=== PATIENT | female | born 1955 | race Caucasian/White ===

== ENCOUNTER 2024-12-20 05:39 | Inpatient (IN) ==
--- NOTE | 2024-12-05 12:00 | PAT Medication Instructions ---
Medication Instructions Date of Service December 05, 2024 Home Medications cholecalciferol (vitamin D3) 125 mcg (5,000 unit) tablet (Vitamin D3) 125 mcg PO QAM esomeprazole magnesium 40 mg capsule,delayed release (Nexium) 40 mg PO BID DO NOT take the morning of surgery cholecalciferol (vitamin D3) 125 mcg (5,000 unit) tablet (Vitamin D3) 125 mcg PO QAM Take morning of surgery With a small sip of water, OTHERWISE NOTHING TO EAT OR DRINK AFTER MIDNIGHT: esomeprazole magnesium 40 mg capsule,delayed release (Nexium) 40 mg PO BID Other Notes If you have any questions please call us at [phone] or [phone] or [phone] or [phone]
--- NOTE | 2024-12-11 09:55 | Anesthesiology Consultation ---
Date of Service December 11, 2024 Assessment & Plan (1) Encounter for pre-operative examination: - Infectious disease screening: Per assessment on 12/11/24- No known recent infectious disease contacts or current infectious disease symptoms. - Cardiology visit 12/07/24: "12 Lead EKG performed today was independently reviewed by me and reveals NSR with nonspecific T wave changes.. Patient is low cardiac risk. Patient is able to complete 4.0 METS without anginal symptoms. Low risk per Brent Criteria. Given nonspecific EKG changes, will get 2D echo > 2D echo today preliminary reveals normal LV size and function and is benign. Will send clearance.. Elevated BP without dx HTN- monitor BP at home.. Repeat BP well controlled.." Final Echo report completed/reviewed by cardio and forwarded to us (of note atrial septal aneurysm noted; no additional cardiac preop recommendations- patient states cardio advised her nothing further needed in regards to this findings). - PCP visit 12/13/24: Hx Right ICA aneurysm noted (2021 carotid imaging received). "Cardiac clearance reviewed. Medical clearance granted." Chart Review Chart Review: Acceptable Risk for Surgery and Patient seen in Pre Admission Testing Teaching & Discussion Pre-Anesthesia Teaching/Discussion Notes: Instructed NPO after midnight before surgery,except medications with 15 cc of water. Medication instructions provided according to the PAT guidelines. History Surgery Operation Date: 12/20/24 07:45 Proposed Procedures p L3-L5 Removal Hardware, L5-S1 Decompression, L3-S1 Fusion - Murali Vaughn, Height/Weight Height: 5 ft 1 in Weight: 64.5 kg Allergies Allergy/AdvReac Type Severity Reaction Status Date / Time egg Allergy Unknown Swelling Verified 12/11/24 10:42 azithromycin Allergy Itchy Verified 12/11/24 10:42 ciprofloxacin [From Cipro] Allergy Hives Verified 12/11/24 10:42 levofloxacin [From Levaquin] Allergy Itchy Verified 12/11/24 10:42 nitrofurantoin Allergy Difficulty Verified 12/11/24 10:42 [From Macrobid] Breathing clarithromycin [From Biaxin] AdvReac Nausea Verified 12/11/24 10:42 esomeprazole [From Nexium] AdvReac Headaches, Verified 12/11/24 10:42 joint pain methotrexate AdvReac Headaches, Verified 12/11/24 10:42 cough metronidazole [From Flagyl] AdvReac Nausea Verified 12/11/24 10:42 sulfamethoxazole AdvReac Nausea Verified 12/11/24 10:42 [From Bactrim] trimethoprim [From Bactrim] AdvReac Nausea Verified 12/11/24 10:42 tree nuts Allergy Swelling Uncoded 12/11/24 10:42 Medications Home Medications Medication Instructions Recorded Confirmed Last Taken cholecalciferol (vitamin D3) 125 125 mcg PO QAM 12/05/24 12/05/24 Unknown mcg (5,000 unit) tablet (Vitamin D3) Tylenol 1 tab PO DIRECTED PRN Pain 12/11/24 12/11/24 Unknown pantoprazole 40 mg tablet,delayed 40 mg PO DAILY 12/11/24 12/11/24 Unknown release (Protonix) Past Medical History Medical History Atrial septal aneurysm Noted on 12/07/24 Echo Cerebral aneurysm Received PCP records that note hx of YONI aneursym. Patient states incidental "small" finding that remained stable x years and no surgical intervention recommended. Received 2021 CTA brain/neck that indicates patient with hx of "known aneurysm posterior skull" but there was no evidence of aneurysm on both brain or neck CTA at that time/most recent imaging 2021. GERD (gastroesophageal reflux disease) Hard of hearing History of [place] (myocardial infarction) 1995; after a trauma (fell and hit chest) Medically managed Follows with [facility] [place] Low back pain Exercise / Class Metabolic Activity II 4-5 Yardwork/Stairs/Walk up hill (one FS: No CP, no SOB) Past Family History Family History Other No family history of adverse response to anesthesia Past Surgical History Surgical History History of cholecystectomy History of colonoscopy History of esophagogastroduodenoscopy (EGD) History of foot surgery Left foot big toe; R foot plantar fascitis procedure History of hysterectomy History of intestinal surgery for obstruction; had ostomy and then subsequent reversal History of lumbar fusion History of postoperative nausea and vomiting History of tubal ligation Past Anesthesia History No Hx of Anesthesia Complications and No Family Hx of Anesthesia Complications (except father with PONV) History of PONV No Hx of Motion Sickness and History of PONV Social History Smoking Status: Never smoker Do You Dip or Chew Tobacco: No Hx Alcohol Use: No Hx Substance Use: No Review of Systems Patient denies chest pain, shortness of breath, dyspnea on exertion, fever, chills, cough, wheezing, palpitations. Physical Exam Vital Signs BP 117/78 P 67 TEMP 97.9 SP02 97%RA RESP 16 Physical Full cervical extension range of motion. Full TMJ range of motion. TMD 3 finger breaths Mallampati Score I Dentition: missing sides/molars, upper front permanent metal "tooth rebuilt" Lungs: clear throughout to auscultation Cardiac: regular rate and rhythm, no murmurs noted Spine: normal Carotid arteries: negative bruit Extremities: no LE edema Lab Results Anesthesia Preop Results Results Anesthesia Widget: WBC 3.76 K/ul (4.8-10.8) L 12/11/24 Hgb 13.5 g/dl (12.0-16.0) 12/11/24 Hct 38.4 % (37.0-47.0) 12/11/24 Plt 234 K/uL (130-400) 12/11/24 Na 140 mmol/L (136-145) 12/11/24 K 4.1 mmol/L (3.5-5.1) 12/11/24 Cl 106 mmol/L (98-107) 12/11/24 CO2 29 mmol/L (21-32) 12/11/24 BUN 16 mg/dl (6-23) 12/11/24 Creat 0.69 mg/dl (0.6-1.2) 12/11/24 Glucose Level 60 mg/dl (70-99(Fasting)) L 12/11/24 PT 10.4 Seconds (9.0-12.0) 12/11/24 PTT 27 Seconds (21-31) 12/11/24 INR 1.0 (0.9-1.1) 12/11/24 Urine Color Yellow 12/11/24 Urine Appearance Clear (Clear) 12/11/24 Urine pH 5.0 (4.5-7.5) 12/11/24 Urine Specific [place] 1.018 (1.000-1.030) 12/11/24 Urine Protein Negative (Negative) 12/11/24 Urine Glucose (UA) Negative (Negative) 12/11/24 Urine Ketones Negative (Negative) 12/11/24 Urine Blood Negative (Negative) 12/11/24 Urine Nitrite Negative (Negative) 12/11/24 Urine Bilirubin Negative (Negative) 12/11/24 Urine Urobilinogen Negative (Negative) 12/11/24 Urine Leukocyte Esterase Negative (Negative) 12/11/24 Blood Type A Positive 12/11/24 Antibody Screen NEGATIVE 12/11/24 Testing Electrocardiogram Date: 12/07/24 SR. 61bpm. NS TW changes. Chest X-Ray Date: 12/11/24 FINDINGS: Heart size and pulmonary vasculature are normal. Lungs are hyperexpanded. No consolidation or pleural effusion. Lumbar metallic fusion is partially visualized. There is minimal scoliosis. IMPRESSION: No acute findings. Echocardiogram Date: 12/07/24 EF 55-60%. Mild AR. Mild to moderate MR. Mild TR/NC. Eustachian valve seen in the right atrium. Grade I DD. Atrial septal aneurysm. Other Testing CTA Brain Date: 06/03/21 Unremarkable CTA of the brain. CTA neck Date: 06/03/21 Essentially normal CTA of the aortic arch and carotid arteries. Per report, hx "known aneurysm posterior skull"
[2024-12-20] MEDS: LR 15ML/HR IV SCH (06:00)
[2024-12-20] MEDS: VANCOMYCIN HCL / NSS 1,000 MG/270 ML BAG IV SCH (06:00)
[2024-12-20] MEDS: CeleBREX 200 MG CAP PO SCH (06:17)
[2024-12-20] MEDS: LR 60ML/HR IV SCH (06:17)
[2024-12-20] MEDS: GABAPENTIN 300 MG CAP PO SCH (06:17)
[2024-12-20] MEDS: ACETAMINOPHEN 500 MG TAB PO SCH (06:17)
[2024-12-20] MEDS ORDERED: DEXAMETHASONE SOD INJ 4 MG/ML VIAL ONE (07:12)
[2024-12-20] MEDS ORDERED: LARYING-O-JET KIT (LTA) ONE (07:12)
[2024-12-20] MEDS ORDERED: PROPOFOL IV EMULSION 10 MG/ML 20 ML VIAL IV ONE (07:12)
[2024-12-20] MEDS ORDERED: ONDANSETRON INJ 2 MG/ML 2 ML VIAL ONE (07:12)
[2024-12-20] MEDS ORDERED: LIDOCAINE 2% 2 ML VIAL/AMP(20MG/ML) INFIL ONE (07:12)
[2024-12-20] MEDS ORDERED: MIDAZOLAM HCL 1 MG/ML 2ML VIAL ONE (07:12)
[2024-12-20] MEDS ORDERED: ROCURONIUM BROMIDE 10 MG/ML 5 ML VIAL IV ONE ×2 (07:12→09:29)
[2024-12-20] MEDS ORDERED: ATROPINE SULFATE 0.1 MG/ML 10ML SYR IV PRN (07:29)
[2024-12-20] MEDS ORDERED: HYDROmorphone INJ 2 MG/ML SYR/VIAL IV PRN (07:29)
--- NOTE | 2024-12-20 07:42 | History & Physical Bridge Note ---
Date of Service December 20, 2024 History & Physical Bridge Note I have examined the patient, reviewed the History & Physical and in the interval since the performance of the History & Physical I have noted the following changes of clinical significance: no changes noted
--- NOTE | 2024-12-20 07:43 | History & Physical Report ---
Date of Service December 20, 2024 Assessment & Plan (1) Lumbosacral spondylosis with radiculopathy: Plan: Removal hardware L3-L5, decompression L5-S1 fusion L3-S1 History of Present Illness Chief Complaint: Back and bilateral leg pain Primary Care Provider: Jerzy Foote This is a 69-year-old female presents chronic persistent back and leg pain after an extensive course of nonoperative care is here for surgical intervention. Allergies Allergy/AdvReac Type Severity Reaction Status Date / Time egg Allergy Unknown Swelling Verified 12/20/24 05:47 azithromycin Allergy Itchy Verified 12/20/24 05:47 ciprofloxacin [From Cipro] Allergy Hives Verified 12/20/24 05:47 levofloxacin [From Levaquin] Allergy Itchy Verified 12/20/24 05:47 nitrofurantoin Allergy Difficulty Verified 12/20/24 05:47 [From Macrobid] Breathing clarithromycin [From Biaxin] AdvReac Nausea Verified 12/20/24 05:47 esomeprazole [From Nexium] AdvReac Headaches, Verified 12/20/24 05:47 joint pain methotrexate AdvReac Headaches, Verified 12/20/24 05:47 cough metronidazole [From Flagyl] AdvReac Nausea Verified 12/20/24 05:47 sulfamethoxazole AdvReac Nausea Verified 12/20/24 05:47 [From Bactrim] trimethoprim [From Bactrim] AdvReac Nausea Verified 12/20/24 05:47 tree nuts Allergy Swelling Uncoded 12/20/24 05:47 Home Medications Medication Instructions Recorded Confirmed Type cholecalciferol (vitamin D3) 125 125 mcg PO QAM 12/05/24 12/20/24 History mcg (5,000 unit) tablet (Vitamin D3) Tylenol 1 tab PO DIRECTED PRN Pain 12/11/24 12/20/24 History pantoprazole 40 mg tablet,delayed 40 mg PO DAILY 12/11/24 12/20/24 History release (Protonix) Past Med/Surg History Problem List (Updated 12/20/24 @ 07:43 by Murali Vaughn DO) Lumbosacral spondylosis with radiculopathy Encounter for pre-operative examination Medical History Atrial septal aneurysm Noted on 12/07/24 Echo Cerebral aneurysm Received PCP records that note hx of YONI aneursym. Patient states incidental "small" finding that remained stable x years and no surgical intervention recommended. Received 2021 CTA brain/neck that indicates patient with hx of "known aneurysm posterior skull" but there was no evidence of aneurysm on both brain or neck CTA at that time/most recent imaging 2021. GERD (gastroesophageal reflux disease) Hard of hearing History of [place] (myocardial infarction) 1995; after a trauma (fell and hit chest) Medically managed Follows with [facility] [place] Low back pain Surgical History History of cholecystectomy History of colonoscopy History of esophagogastroduodenoscopy (EGD) History of foot surgery Left foot big toe; R foot plantar fascitis procedure History of hysterectomy History of intestinal surgery for obstruction; had ostomy and then subsequent reversal History of lumbar fusion History of postoperative nausea and vomiting History of tubal ligation Family History Other No family history of adverse response to anesthesia Social History Smoking Status: Never smoker Second Hand Exposure: No; Do You Dip or Chew Tobacco: No; Tobacco Cessation Education Requested by Patient: No Hx Alcohol Use: No Hx Substance Use: No Preferred Language: Belarusian Communication Ability: Effective Supervisor Press Room Required: No Beliefs That Will Affect Care: None Current Living Situation: Spouse Other Information That Helps Us Care for You: No Feels Safe at Home: Yes Safety Concerns: Feels Safe At This Time Assistive Devices: Glasses and Hearing Aid - Bilateral Physical Exam Physical Exam: Patient alert and oriented heart regular rhythm Lungs clear Results & Data Results & Data Vital Signs (Past 12 Hours) Vital Signs Temp Pulse Resp BP Pulse Ox O2 Del Method 12/20/24 06:02 36.6 C 66 20 174/91 H 98 Room Air
[2024-12-20] MEDS ORDERED: ePHEDrine sulfate 50 MG/5 ML SYR ONE ×2 (08:05→09:29)
[2024-12-20] MEDS ORDERED: DROPERIDOL 5 MG/2 ML VIAL ONE (08:09)
[2024-12-20] MEDS ORDERED: SUGAMMADEX SODIUM 200 MG/2 ML VIAL IV ONE (08:18)
[2024-12-20] MEDS: BUPIVACAINE/EPINEPHRINE 0.25% 1:200,000 30 ML VIAL ONE (08:19)
[2024-12-20] MEDS: ceFAZolin 330 MG/ML 1 GM VIAL ONE (09:42)
[2024-12-20] MEDS: FLOSEAL HEMOSTATIC MATRIX 10ML TOP ONE (09:43)
--- NOTE | 2024-12-20 10:01 | Operative Report ---
Post Operative Report Pre & Post Diagnosis Operation Date: 12/20/24 07:45 Pre-Op Diagnosis: #1 lumbosacral Spondylosis with Radiculopathy #2 lumbar spondylolisthesis L5-S1 Post-Op Diagnosis: Same I identified the patient and participated in the time-out.: Yes Procedure Operation Date: 12/20/24 07:45 Actual Procedures #1 removal of posterior instrumentation L3-L5. #2 exploration of fusion L3-L5. #3 lumbar decompression with bilateral medial facetectomies and foraminotomies L5-S1. #4 posterior spinal fusion L5-S1. #5 placement posterior instrument ation L3-S1 using Aldrich. #6 interbody fusion L5-S1. #7 placement Spira 13 x 26 mm x 2 at L5-S1. #8 placement of Proteus, with Koros in the posterior lateral gutters and os design in the interbody space. #9 application of versa wrap of the exposed dura. Surgeon Murali Vaughn, DO Sustainability Project Manager Vilma Zhao Estimated Blood Loss 100 Findings See Below Significant technical difficulty was noted throughout the procedure involving instrumentation removal requiring helicopter and each screw for successful removal. Also noted excessive scarring throughout the surgical bed creating technical limitations and difficulties with the decompression and ultimate fusion of the L5-S1 level. These issues at at least 40% increased operative time. I am recommending a modifier 22. Specimens None Indications This is a 69-year-old female that presents manage diagnosis of failed course of nonoperative care she is here for surgical invention. Description of Procedure Patient was met with identified informed consent obtained. Patient was then taken to the operative suite underwent and patient placed in prone position on the Henry table atop the Mundo frame. All bony prominences well-padded eyes inspected to ensure no external pressure placed upon them. This point lumbar spine is prepped and draped sterile fashion. Sharp dissection with the assistance of Bovie cautery performed down to and exposing the instrumentation at L3-L4-L5 as well as the lamina of L5 and the sacral ala bilaterally. I then proceeded to remove the hardware bilaterally. This did create significant technical difficulty in light of the instrumentation required to remove each screw. I had to helicopter each screw was the only way to successfully remove the hardware. Then performed a complete laminectomy of L5 navigating previous scar. This included bilateral medial facetectomies and foraminotomies addressing all neural compression. Pedicle screws were then placed in L3-L5 and S1 levels bilaterally with assistance of fluoroscopy purposes baljeet contoured and placed. Bilateral transforaminal approach on the left discectomy of L5-S1 was performed endplates corrected to subcortical bleeding bone and a 13 x 26 mm Spira cage tapped in position. Then proceeded to the right transforaminal region L5-S1. Again discectomy performed. Endplates guided to subcortical bleeding bone and a second 13 x 26 mm Spira cage tapped into position. Please note all cages were packed with os design bone graft. Rods were then compressed locked into final position bilaterally. The transverse processes of L5 and sacral ala burred to subcortical bleeding bone. Proteus, with Koros placed in posterolateral gutters. Versa wrap placed of exposed dura. 15 round DIDI drain inserted. Incision was then closed with 1 Vicryl in the fascia 2-0 Vicryl subcutaneously and 4-0 Monocryl for final skin closure. Steri-Strips sterile dressing placed. Patient waken taken to PACU in stable condition. Please note Vilma Zhao was present at the entire procedure and on the patient positioning complex portion of the surgery and final skin closure. I attest to the content of the Intraoperative Record and any orders documented therein. Any exceptions are noted below.
[2024-12-20] MEDS: PROMETHAZINE HCL 6.25 MG in SODIUM CHLORIDE 0.9% 50 ML IV PRN (10:32)
--- NOTE | 2024-12-20 10:36 | Fluoroscopy Report ---
FL lumbar spine 2-3V CLINICAL HISTORY: L3-5 REMOVAL HARWARE L5-S1 DECOMP FUSION COMPARISON STUDY: None FLUOROSCOPY TIME: 11 seconds FLUOROSCOPY IMAGES: 2 EXPOSURE DOSE: 12 mGy FINDINGS: Fluoroscopy was provided for lumbar surgery. IMPRESSION: Intraoperative fluoroscopy. ACT 112: Negative or not required by law. Electronically signed by: Rick Hoyt M.D. 12/20/2024 10:35 AM
[2024-12-20] MEDS ORDERED: PROMETHAZINE 12.5 MG/50.5 ML BAG IV PRN (12:15)
[2024-12-20] MEDS ORDERED: LORazepam 0.5 MG TAB PO PRN (12:15)
[2024-12-20] MEDS ORDERED: HYDROmorphone INJ 0.5 MG/0.5 ML SYR IV PRN (12:15)
[2024-12-20] MEDS ORDERED: ONDANSETRON 4 MG OD TAB PO PRN (12:15)
[2024-12-20] MEDS ORDERED: NALOXONE HCL 0.4 MG/1 ML VIAL/CARP IV PRN (12:15)
[2024-12-20] MEDS ORDERED: HYDROmorphone INJ 1 MG/ML SYRINGE IV PRN (12:15)
[2024-12-20] MEDS ORDERED: DO NOT ADMINISTER PNEUMOCOCCAL VACCINE PRN (12:15)
[2024-12-20] MEDS ORDERED: FAMOTIDINE 20 MG TAB PO PRN (12:15)
[2024-12-20] MEDS ORDERED: ALUMINUM/MAGNESIUM SUSP 30 ML UDC PO PRN (12:15)
[2024-12-20] MEDS ORDERED: METOCLOPRAMIDE HCL INJ 5 MG/ML 2 ML VIAL IV PRN (12:15)
[2024-12-20] MEDS ORDERED: ONDANSETRON INJ 2 MG/ML 2 ML VIAL IV PRN (12:15)
[2024-12-20] MEDS ORDERED: DO NOT ADMINISTER FLU VACCINE PRN (12:15)
[2024-12-20] MEDS ORDERED: MAGNESIUM HYDROXIDE SUSP 30 ML UDC PO PRN (12:15)
[2024-12-20] MEDS ORDERED: ACETAMINOPHEN 1,000 MG/100 ML VIAL IV PRN (12:15)
[2024-12-20] MEDS ORDERED: SOD PHOSPHATE/SOD BIPHOSPHATE ENEMA 132 ML BTL PR PRN (12:15)
[2024-12-20] MEDS: SODIUM CHLORIDE 0.9% 50 ML BAG ONE (12:57)
[2024-12-20] MEDS: PROMETHAZINE HCL INJ 25 MG/ML 1 ML VIAL ONE (12:57)
[2024-12-20] MEDS: LACTATED RINGER'S 1,000 ML IV SCH (12:58)
--- NOTE | 2024-12-20 14:35 | Anesthesiology Progress Note ---
Date of Service December 20, 2024 Anesthesia Post Procedure Vital Signs Vital Signs: Temp Pulse Pulse Resp BP Pulse Ox O2 Del Method 12/20/24 13:57 36.5 C 78 16 102/66 99 Nasal Cannula 12/20/24 12:55 36.4 C L 77 18 110/72 99 Nasal Cannula 12/20/24 12:30 65 16 109/67 98 Nasal Cannula 12/20/24 12:00 36.3 C L 69 18 129/78 99 Nasal Cannula 12/20/24 11:35 69 13 140/79 99 Nasal Cannula 12/20/24 11:20 75 15 140/73 99 Nasal Cannula 12/20/24 11:05 61 14 125/66 100 Nasal Cannula 12/20/24 10:55 36.4 C L 62 14 131/70 99 Nasal Cannula 12/20/24 10:45 36.4 C L 68 15 127/71 99 Nasal Cannula 12/20/24 10:35 80 15 145/96 H 98 Oxymask 12/20/24 10:25 93 H 15 135/69 100 Oxymask 12/20/24 10:15 69 15 151/65 H 99 Oxymask 12/20/24 10:09 36.0 C L 71 15 159/84 H 100 Oxymask 12/20/24 06:02 36.6 C 66 20 174/91 H 98 Room Air O2 Flow Rate 12/20/24 13:57 2 12/20/24 12:55 2 12/20/24 12:30 2 12/20/24 12:00 2 12/20/24 11:35 2 12/20/24 11:20 2 12/20/24 11:05 2 12/20/24 10:55 4 12/20/24 10:45 4 12/20/24 10:35 5 12/20/24 10:25 5 12/20/24 10:15 5 12/20/24 10:09 5 12/20/24 06:02 Pain Intensity Back: Pain Intensity: 7 Transfer of Care Handoff Completed per policy Notes Mental Status: alert / awake / arousable and participated in evaluation Nausea / Vomiting: adequately controlled Pain: adequately controlled Airway Patency, RR, SpO2: stable & adequate BP & HR: stable & adequate Hydration State: stable & adequate Anesthetic Complications: no major complications apparent and Pt Satisfied with anesthetic care
--- NOTE | 2024-12-20 14:38 | Consultation ---
Date of Consultation December 20, 2024 Assessment & Plan (1) Cerebral aneurysm: (2) Atrial septal aneurysm: (3) History of [place] (myocardial infarction): (4) Lumbosacral spondylosis with radiculopathy: Plan The patient is a 69-year-old female who is s/p lumbar decompression and fusion Lumbar radiculopathy: S/p lumbar decompression/fusion 12/20: PT/OT/pain control/DVT prophylaxis per primary team Hx GERD: Continue pantoprazole Hx Vit D def: Continue vitamin D Some wheezing noted on exam, likely secondary to recent anesthesia, will order as needed albuterol, no hypoxia noted no shortness of breath We will follow along with you throughout the hospitalization A total of 45 mins was spent on chart review, reviewing diagnostic data, discus emma with consultants Full code DVT prophylaxis: Per primary team Supervising Physician Co-Signing Physician Notes Patient seen and examined Currently denies any pain in legs. Reports surgical site pain is well controlled Activity per Surgeon PT/OT Check CBC and BMP in AM Other plans as detailed by Romain PAEZ History of Present Illness Requesting Physician: Dr. Vaughn Reason for Consultation: S/p lumbar decompression & fusion Attending Physician: Murali Vaughn, DO History of Present Illness The patient is a 69-year-old female with a past medical history of GERD, vitamin D deficiency, right ICA aneurysm who presents to the hospital on 12/20/2024 s/p L5-S1 decompression, L3-S1 fusion We are asked to see the patient for postop medical management On exam, the patient is resting comfortably. She denies any complaints. Denies any chest pain or shortness of breath. Reports her pain is controlled. Allergies Allergy/AdvReac Type Severity Reaction Status Date / Time egg Allergy Unknown Swelling Verified 12/20/24 05:47 azithromycin Allergy Itchy Verified 12/20/24 05:47 ciprofloxacin [From Cipro] Allergy Hives Verified 12/20/24 05:47 levofloxacin [From Levaquin] Allergy Itchy Verified 12/20/24 05:47 nitrofurantoin Allergy Difficulty Verified 12/20/24 05:47 [From Macrobid] Breathing clarithromycin [From Biaxin] AdvReac Nausea Verified 12/20/24 05:47 esomeprazole [From Nexium] AdvReac Headaches, Verified 12/20/24 05:47 joint pain methotrexate AdvReac Headaches, Verified 12/20/24 05:47 cough metronidazole [From Flagyl] AdvReac Nausea Verified 12/20/24 05:47 sulfamethoxazole AdvReac Nausea Verified 12/20/24 05:47 [From Bactrim] trimethoprim [From Bactrim] AdvReac Nausea Verified 12/20/24 05:47 tree nuts Allergy Swelling Uncoded 12/20/24 05:47 Home Medications Medication Instructions Recorded Confirmed Type cholecalciferol (vitamin D3) 125 125 mcg PO QAM 12/05/24 12/20/24 History mcg (5,000 unit) tablet (Vitamin D3) Tylenol 1 tab PO DIRECTED PRN Pain 12/11/24 12/20/24 History pantoprazole 40 mg tablet,delayed 40 mg PO DAILY 12/11/24 12/20/24 History release (Protonix) Patient History Medical History Atrial septal aneurysm Noted on 12/07/24 Echo Cerebral aneurysm Received PCP records that note hx of YONI aneursym. Patient states incidental "small" finding that remained stable x years and no surgical intervention recommended. Received 2021 CTA brain/neck that indicates patient with hx of "known aneurysm posterior skull" but there was no evidence of aneurysm on both brain or neck CTA at that time/most recent imaging 2021. GERD (gastroesophageal reflux disease) Hard of hearing History of [place] (myocardial infarction) 1995; after a trauma (fell and hit chest) Medically managed Follows with [facility] [place] Low back pain Surgical History History of cholecystectomy History of colonoscopy History of esophagogastroduodenoscopy (EGD) History of foot surgery Left foot big toe; R foot plantar fascitis procedure History of hysterectomy History of intestinal surgery for obstruction; had ostomy and then subsequent reversal History of lumbar fusion History of postoperative nausea and vomiting History of tubal ligation Family History Other No family history of adverse response to anesthesia Social History Smoking Status: Never smoker Second Hand Exposure: No; Do You Dip or Chew Tobacco: No; Tobacco Cessation Education Requested by Patient: No Hx Alcohol Use: No Hx Substance Use: No Preferred Language: Yi Communication Ability: Effective 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 Beliefs That Will Affect Care: None Current Living Situation: Spouse Other Information That Helps Us Care for You: No Feels Safe at Home: Yes Safety Concerns: Feels Safe At This Time Assistive Devices: Cane and Walker Review of Systems Review of Systems: All systems reviewed & are unremarkable except as noted in HPI & below Physical Exam Constitutional: WD/WN, vitals as above Eyes: PERRL, conjunctivae normal, anicteric sclerae ENMT: external ear and nose normal, oropharynx normal Neck: trachea midline, no thyromegaly Respiratory: normal respiratory effort, lungs clear to auscultation Auscultation: + wheezes Cardiovascular: RRR, no murmur, no edema Gastrointestinal (Abdomen): normal bowel sounds, soft, nontender, no hepatosplenomegaly Musculoskeletal: no cyanosis or clubbing, extremities motor strength 5/5 (DIDI drain in place lumbar incision dressing CDI) Neurologic: PERRL, EOMI, accommodation nl, no face palsy, no dysarthria Psychiatric: A+Ox3, euthymic affect Lymphatic: no cervical or axillary lymphadenopathy Results & Data Vital Signs (Past 12 Hours) Vital Signs Temp Pulse Pulse Resp BP Pulse Ox O2 Del Method 12/20/24 13:57 36.5 C 78 16 102/66 99 Nasal Cannula 12/20/24 12:55 36.4 C L 77 18 110/72 99 Nasal Cannula 12/20/24 12:30 65 16 109/67 98 Nasal Cannula 12/20/24 12:00 36.3 C L 69 18 129/78 99 Nasal Cannula 12/20/24 11:35 69 13 140/79 99 Nasal Cannula 12/20/24 11:20 75 15 140/73 99 Nasal Cannula 12/20/24 11:05 61 14 125/66 100 Nasal Cannula 12/20/24 10:55 36.4 C L 62 14 131/70 99 Nasal Cannula 12/20/24 10:45 36.4 C L 68 15 127/71 99 Nasal Cannula 12/20/24 10:35 80 15 145/96 H 98 Oxymask 12/20/24 10:25 93 H 15 135/69 100 Oxymask 12/20/24 10:15 69 15 151/65 H 99 Oxymask 12/20/24 10:09 36.0 C L 71 15 159/84 H 100 Oxymask 12/20/24 06:02 36.6 C 66 20 174/91 H 98 Room Air O2 Flow Rate 12/20/24 13:57 2 12/20/24 12:55 2 12/20/24 12:30 2 12/20/24 12:00 2 12/20/24 11:35 2 12/20/24 11:20 2 12/20/24 11:05 2 12/20/24 10:55 4 12/20/24 10:45 4 12/20/24 10:35 5 12/20/24 10:25 5 12/20/24 10:15 5 12/20/24 10:09 5 12/20/24 06:02 Laboratory Results Laboratory Results Blood Type A Positive 12/20/24 05:38 Antibody Screen NEGATIVE 12/20/24 05:38 Crossmatch See Detail 12/20/24 05:38 Impressions Lumbar Spine X-Ray 12/20/24 07:45 FL lumbar spine 2-3V CLINICAL HISTORY: L3-5 REMOVAL HARWARE L5-S1 DECOMP FUSION COMPARISON STUDY: None FLUOROSCOPY TIME: 11 seconds FLUOROSCOPY IMAGES: 2 EXPOSURE DOSE: 12 mGy FINDINGS: Fluoroscopy was provided for lumbar surgery. IMPRESSION: Intraoperative fluoroscopy. ACT 112: Negative or not required by law. Electronically signed by: Rick Hoyt M.D. 12/20/2024 10:35 AM
[2024-12-20] MEDS: ACETAMINOPHEN 500 MG TAB PO PRN (18:09)
[2024-12-20] MEDS: DOCUSATE SODIUM/SENNA 50/8.6MG TAB PO SCH (20:18)
[2024-12-21] MEDS: POLYETHYLENE (MIRALAX) 17 GM PACK PO SCH (05:58)
[2024-12-21 06:51] LABS: Hematocrit (blood only) 27.5 % (37.0-47.0); Hemoglobin 9.5 g/dl (12.0-16.0); Immature Granulocytes # (auto) 0.03 K/uL (0.01-0.20); Immature Granulocytes % (auto) 0.4 %; Mean Corpuscular Hemoglobin 31.1 pg (25.0-34.0); Mean Corpuscular Volume 90.2 fL (80.0-100.0); Platelet Count 184 K/uL (130-400); RDW Standard Deviation 41.6 fL (36.4-46.3); Red Blood Count 3.05 M/uL (4.20-5.40); White Blood Count 6.87 K/ul (4.8-10.8)
[2024-12-21 07:15] LABS: Anion Gap 4.0 (3-11); Calcium 8.5 mg/dl (8.6-10.3); Carbon Dioxide 28.0 mmol/L (21-32); Chloride 107.0 mmol/L (98-107); Potassium 4.0 mmol/L (3.5-5.1); Sodium 139.0 mmol/L (136-145)
[2024-12-21 07:20] LABS: Blood Urea Nitrogen 13.0 mg/dl (6-23); Creatinine Clr Calc Pharmacy 63.7 ml/min; Glucose 131.0 mg/dl (70-99(Fasting))
[2024-12-21] MEDS: CHOLECALCIFEROL 125 MCG (5,000 UNITS) TAB PO SCH (09:07)
[2024-12-21] MEDS: dexAMETHasone 6 MG in SYRINGE 0 ML IV SCH (09:07)
--- NOTE | 2024-12-21 12:21 | Orthopedic Progress Note ---
Date of Service December 21, 2024 Assessment & Plan (1) Lumbosacral spondylosis with radiculopathy: Plan: At this time we will continue physical therapy monitor her DIDI output healthy discharge home next few days. Admission and Anticipated Discharge Date Admission Date: December 20, 2024 Subjective Back pain controlled leg pain markedly improved Physical Exam Physical Exam: Patient is in the chair at the bedside. Comfortable Strength testing. Results & Data Vital Signs (Past 12 Hours) Vital Signs Temp Pulse Resp BP Pulse Ox O2 Del Method 12/21/24 11:23 36.6 C 67 16 106/66 98 Room Air 12/21/24 07:10 36.6 C 74 16 109/64 97 Room Air 12/21/24 03:44 36.6 C 71 16 114/60 98 Room Air
--- NOTE | 2024-12-21 12:38 | Hospitalist Progress Note ---
Date of Service December 21, 2024 Assessment & Plan (1) Cerebral aneurysm: (2) Atrial septal aneurysm: (3) History of [place] (myocardial infarction): (4) Lumbosacral spondylosis with radiculopathy: Plan The patient is a 69-year-old female who is s/p lumbar decompression and fusion Lumbar radiculopathy: S/p lumbar decompression/fusion 12/20: PT/OT/pain control/DVT prophylaxis per primary team Denies any symptoms following the procedure except minimal pain at the lower back Her hemoglobin is 9.5 on 12/21/2024 which was 13.5 on 12/11/2024Will monitor Remains otherwise medically stable with normal renal function and electrolytes Acute blood loss anemia Complicated by fluid administration No obvious bleeding from GI tract Will monitor CBC Hx GERD: Continue pantoprazole Hx Vit D def: Continue vitamin D Full code DVT prophylaxis: Per primary team Admission and Anticipated Discharge Date Admission Date: December 20, 2024 Subjective 12/21/2024 The patient was seen and examined in medical floor She is a status post L5-S1 decompression, L3-S1 fusion and L3-L5 removal of hardware on 12/20/2024 She complains to a minimal pain at the lower back without any radiation Denies any other significant symptoms Review of Systems Review of Systems: All systems reviewed and are unremarkable except as noted below Physical Exam Physical Exam: Sitting on a chair without any acute distress Constitutional: well developed, well nourished, + ill appearing and average body habitus Eyes: PERRL, conjunctivae normal, anicteric sclerae ENMT: external ear and nose normal, oropharynx normal Neck: trachea midline, no thyromegaly Respiratory: no respiratory distress Auscultation: lungs clear to auscultation bilaterally Cardiovascular: Rate/Rhythm: regular rate and regular rhythm; not tachycardic Heart Sounds: normal S1 and normal S2; no murmur Extremities: no edema Gastrointestinal (Abdomen): Inspection/Auscultation: normal bowel sounds; abdomen not distended Percussion/Palpation: abdomen soft; abdomen nontender Musculoskeletal: No acute arthritis involving any of the joint Neurologic: normal touch/pain/proprioception and moves all extremities; no focal motor deficits Lymphatic: no cervical or axillary lymphadenopathy Results & Data Results & Data Vital Signs (Past 12 Hours) Vital Signs Temp Pulse Resp BP Pulse Ox O2 Del Method 12/21/24 11:23 36.6 C 67 16 106/66 98 Room Air 12/21/24 07:10 36.6 C 74 16 109/64 97 Room Air 12/21/24 03:44 36.6 C 71 16 114/60 98 Room Air Laboratory Results Short CBC 12/21/24 Range/Units 06:03 WBC 6.87 (4.8-10.8) K/ul Hgb 9.5 L (12.0-16.0) g/dl Hct 27.5 L (37.0-47.0) % Plt Count 184 (130-400) K/uL BMP 12/21/24 06:03 Sodium 139 Potassium 4.0 Chloride 107 Carbon Dioxide 28 BUN 13 Creatinine 0.72 Glucose 131 H Calcium 8.5 L Medications Administered Current Inpatient Medications Acetaminophen (Acetaminophen 500 Mg Tab) 1,000 mg PO Q8H PRN PRN Reason: MILD Pain (1,2,3) & Pre PT Stop: 01/19/25 12:14 Last Admin: 12/21/24 10:24 Dose: 1,000 mg Al Hydrox/Mg Hydrox/Simethicone (Aluminum/Magnesium Susp 30 Ml Udc) 30 ml PO Q6H PRN PRN Reason: Dyspepsia Stop: 01/19/25 12:14 Bisacodyl (Bisacodyl 10 Mg Supp) 10 mg [place] DAILY PRN PRN Reason: Constipation Stop: 01/19/25 12:14 Diphenhydramine HCl (Diphenhydramine Capsule 25 Mg Cap) 25 mg PO Q6H PRN PRN Reason: Allergic Rhinitis/Insomnia Stop: 01/19/25 12:14 Famotidine (Famotidine 20 Mg Tab) 20 mg PO Q12H PRN PRN Reason: Dyspepsia Stop: 01/19/25 12:14 Hydromorphone HCl (Hydromorphone Inj 0.5 Mg/0.5 Ml Syr) 0.5 mg IV Q3H PRN PRN Reason: MODERATE Pain(4,5,6)/Pre PT Stop: 01/03/25 12:14 Hydromorphone HCl (Hydromorphone Inj 1 Mg/Ml Syringe) 1 mg IV Q3H PRN PRN Reason: SEVERE Pain (7,8,9,10) Stop: 01/03/25 12:14 Hydroxyzine HCl (Hydroxyzine Hcl 25 Mg Tab) 25 mg PO Q8H PRN PRN Reason: Anxiety Stop: 01/19/25 12:14 Cefazolin Sodium (Ancef 2000mg) 2,000 mg in 15 mls @ 3.75 mls/min IV Q8H MOLLY; Protocol Stop: 12/23/24 08:18 Last Admin: 12/21/24 09:07 Dose: 3.75 mls/min Promethazine HCl (Phenergan) 12.5 mg in 50.5 mls @ 202 mls/hr IV Q6H PRN PRN Reason: Nausea And Vomiting Stop: 01/19/25 12:14 Dexamethasone 6 mg/ Syringe 1.5 mls @ 1 mls/min IV DAILY MOLLY Stop: 12/23/24 09:02 Last Admin: 12/21/24 09:07 Dose: 1 mls/min Influenza Virus Vaccine Quadrival (Do Not Administer Flu Vaccine) 1 each N/A PRN PRN PRN Reason: Notification Stop: 01/19/25 12:14 Lorazepam (Lorazepam 0.5 Mg Tab) 0.5 mg PO Q8H PRN PRN Reason: Sedation/Anxiety Stop: 01/19/25 12:14 Lorazepam (Lorazepam 2 Mg/1 Ml Vial) 0.5 mg IV Q8H PRN PRN Reason: Sedation/Anxiety Stop: 01/19/25 12:14 Magnesium Hydroxide (Magnesium Hydroxide Susp 30 Ml Udc) 30 ml PO Q24H PRN PRN Reason: Constipation Stop: 01/19/25 12:14 Metoclopramide HCl (Metoclopramide Hcl Inj 5 Mg/Ml 2 Ml Vial) 10 mg IV Q6H PRN PRN Reason: Nausea &/or Vomiting Stop: 01/19/25 12:14 Naloxone HCl (Naloxone Hcl 0.4 Mg/1 Ml Vial/Carp) 0.1 mg IV Q5M PRN PRN Reason: Oversedation/Resp depression Stop: 01/19/25 12:14 Ondansetron HCl (Ondansetron Inj 2 Mg/Ml 2 Ml Vial) 4 mg IV Q6H PRN PRN Reason: Nausea &/or Vomiting Stop: 01/19/25 12:14 Ondansetron HCl (Ondansetron 4 Mg Od Tab) 4 mg PO Q6H PRN PRN Reason: Nausea Stop: 01/19/25 12:14 Oxycodone HCl (Oxycodone Hcl Ir 5 Mg Tab (Immediate Release)) 5 - 10 mg PO Q4H PRN PRN Reason: MOD/SEV Pain & Pre PT Stop: 01/03/25 12:14 Pantoprazole Sodium (Pantoprazole 40 Mg Tab) 40 mg PO DAILY MOLLY Stop: 01/20/25 08:59 Last Admin: 12/21/24 09:07 Dose: 40 mg Pneumococcal Polyvalent Vaccine (Do Not Administer Pneumococcal Vaccine) 1 each N/A PRN PRN PRN Reason: Notification Stop: 01/19/25 12:14 Polyethylene Glycol (Polyethylene (Miralax) 17 Gm Pack) 17 gm PO Q6 MOLLY Stop: 01/20/25 05:59 Last Admin: 12/21/24 11:37 Dose: 17 gm Senna/Docusate Sodium (Docusate Sodium/Senna 50/8.6mg Tab) 2 tab PO HS MOLLY Stop: 01/19/25 20:59 Last Admin: 12/20/24 20:18 Dose: 2 tab Sodium Biphosphate/Sodium Phosphate (Sod Phosphate/Sod Biphosphate Enema 132 Ml Btl) 132 ml OH ONE PRN PRN Reason: Constipation Stop: 01/19/25 12:14 Tramadol HCl (Tramadol Hcl 50 Mg Tablet) 50 - 100 mg PO Q4H PRN PRN Reason: MOD/SEV Pain & Pre PT Stop: 01/19/25 12:14 Vitamin D (Cholecalciferol 125 Mcg (5,000 Units) Tab) 125 mcg PO QAM MOLLY Stop: 01/20/25 08:59 Last Admin: 12/21/24 09:07 Dose: 125 mcg
[2024-12-21] MEDS: CLINDAMYCIN/D5W 600 MG/50 ML BAG IV SCH (17:41)
[2024-12-22] MEDS: diphenhydrAMINE Capsule 25 MG CAP PO PRN (00:43)
--- NOTE | 2024-12-22 06:35 | Orthopedic Progress Note ---
Date of Service December 22, 2024 Assessment & Plan (1) Lumbosacral spondylosis with radiculopathy: Plan: At this time we will continue physical therapy monitor her DIDI output healthy discharge home Likely tomorrow. Admission and Anticipated Discharge Date Admission Date: December 20, 2024 Subjective The patient was seen and examined in medical floor She is a status post L5-S1 decompression, L3-S1 fusion and L3-L5 removal of hardware on 12/20/2024 She complains to a minimal pain at the lower back without any radiation Denies any other significant symptoms Review of Systems Review of Systems: All systems reviewed & are unremarkable except as noted in HPI & below Physical Exam Physical Exam: sensation intact light touch L2-S1 bilaterally. active EHL/GSC/TA bilaterally. Bilateral feet warm and well-perfused. Results & Data Vital Signs (Past 12 Hours) Vital Signs Temp Pulse Resp BP Pulse Ox O2 Del Method 12/21/24 22:32 36.6 C 67 18 116/65 96 Room Air
[2024-12-22 08:47] LABS: Hematocrit (blood only) 28.3 % (37.0-47.0); Hemoglobin 9.6 g/dl (12.0-16.0); Immature Granulocytes # (auto) 0.04 K/uL (0.01-0.20); Immature Granulocytes % (auto) 0.5 %; Mean Corpuscular Hemoglobin 31.4 pg (25.0-34.0); Mean Corpuscular Volume 92.5 fL (80.0-100.0); Platelet Count 197 K/uL (130-400); RDW Standard Deviation 44.2 fL (36.4-46.3); Red Blood Count 3.06 M/uL (4.20-5.40); White Blood Count 7.87 K/ul (4.8-10.8)
[2024-12-22 09:04] LABS: Anion Gap 3.0 (3-11); Blood Urea Nitrogen 15.0 mg/dl (6-23); Calcium 8.6 mg/dl (8.6-10.3); Carbon Dioxide 31.0 mmol/L (21-32); Chloride 108.0 mmol/L (98-107); Creatinine Clr Calc Pharmacy 70.6 ml/min; Glucose 105.0 mg/dl (70-99(Fasting)); Potassium 3.8 mmol/L (3.5-5.1); Sodium 142.0 mmol/L (136-145)
--- NOTE | 2024-12-22 14:20 | Hospitalist Progress Note ---
Date of Service December 22, 2024 Assessment & Plan (1) Cerebral aneurysm: (2) Atrial septal aneurysm: (3) History of [place] (myocardial infarction): (4) Lumbosacral spondylosis with radiculopathy: Plan The patient is a 69-year-old female who is s/p lumbar decompression and fusion Lumbar radiculopathy: S/p lumbar decompression/fusion 12/20: PT/OT/pain control/DVT prophylaxis per primary team Denies any symptoms following the procedure except minimal pain at the lower back Her hemoglobin is 9.5 on 12/21/2024 which was 13.5 on 12/11/2024Will monitor Remains otherwise medically stable with normal renal function and electrolytes Remains medically stable without much pain at the back Her electrolytes are normal Acute blood loss anemia Complicated by fluid administration No obvious bleeding from GI tract Will monitor CBC-hemoglobin remains stable at 9.6 Hx GERD: Continue pantoprazole Hx Vit D def: Continue vitamin D Full code DVT prophylaxis: Per primary team Admission and Anticipated Discharge Date Admission Date: December 20, 2024 Subjective 12/21/2024 The patient was seen and examined in medical floor She is a status post L5-S1 decompression, L3-S1 fusion and L3-L5 removal of hardware on 12/20/2024 She complains to a minimal pain at the lower back without any radiation Denies any other significant symptoms 12/22/2024 Patient was seen and examined in medical floor She has been much better denies any more symptoms of antibiotic Denies any significant symptoms Review of Systems Review of Systems: All systems reviewed and are unremarkable except as noted below Physical Exam Physical Exam: Sitting on a chair without any acute distress Constitutional: well developed, well nourished, + ill appearing and average body habitus Eyes: PERRL, conjunctivae normal, anicteric sclerae ENMT: external ear and nose normal, oropharynx normal Neck: trachea midline, no thyromegaly Respiratory: no respiratory distress Auscultation: lungs clear to auscultation bilaterally Cardiovascular: Rate/Rhythm: regular rate and regular rhythm; not tachycardic Heart Sounds: normal S1 and normal S2; no murmur Extremities: no edema Gastrointestinal (Abdomen): Inspection/Auscultation: normal bowel sounds; abdomen not distended Percussion/Palpation: abdomen soft; abdomen nontender Neurologic: normal touch/pain/proprioception and moves all extremities; no focal motor deficits Lymphatic: no cervical or axillary lymphadenopathy Results & Data Results & Data Vital Signs (Past 12 Hours) Vital Signs Temp Pulse Resp BP Pulse Ox O2 Del Method 12/22/24 07:12 36.8 C 70 16 105/58 L 99 Room Air 12/22/24 07:00 Room Air Laboratory Results Short CBC 12/22/24 Range/Units 08:05 WBC 7.87 (4.8-10.8) K/ul Hgb 9.6 L (12.0-16.0) g/dl Hct 28.3 L (37.0-47.0) % Plt Count 197 (130-400) K/uL BMP 12/22/24 08:05 Sodium 142 Potassium 3.8 Chloride 108 H Carbon Dioxide 31 BUN 15 Creatinine 0.65 Glucose 105 H Calcium 8.6 Medications Administered Current Inpatient Medications Acetaminophen (Acetaminophen 500 Mg Tab) 1,000 mg PO Q8H PRN PRN Reason: MILD Pain (1,2,3) & Pre PT Stop: 01/19/25 12:14 Last Admin: 12/22/24 08:45 Dose: 1,000 mg Al Hydrox/Mg Hydrox/Simethicone (Aluminum/Magnesium Susp 30 Ml Udc) 30 ml PO Q6H PRN PRN Reason: Dyspepsia Stop: 01/19/25 12:14 Bisacodyl (Bisacodyl 10 Mg Supp) 10 mg [place] DAILY PRN PRN Reason: Constipation Stop: 01/19/25 12:14 Diphenhydramine HCl (Diphenhydramine Capsule 25 Mg Cap) 25 mg PO Q6H PRN PRN Reason: Allergic Rhinitis/Insomnia Stop: 01/19/25 12:14 Last Admin: 12/22/24 08:48 Dose: 25 mg Famotidine (Famotidine 20 Mg Tab) 20 mg PO Q12H PRN PRN Reason: Dyspepsia Stop: 01/19/25 12:14 Hydromorphone HCl (Hydromorphone Inj 0.5 Mg/0.5 Ml Syr) 0.5 mg IV Q3H PRN PRN Reason: MODERATE Pain(4,5,6)/Pre PT Stop: 01/03/25 12:14 Hydromorphone HCl (Hydromorphone Inj 1 Mg/Ml Syringe) 1 mg IV Q3H PRN PRN Reason: SEVERE Pain (7,8,9,10) Stop: 01/03/25 12:14 Hydroxyzine HCl (Hydroxyzine Hcl 25 Mg Tab) 25 mg PO Q8H PRN PRN Reason: Anxiety Stop: 01/19/25 12:14 Promethazine HCl (Phenergan) 12.5 mg in 50.5 mls @ 202 mls/hr IV Q6H PRN PRN Reason: Nausea And Vomiting Stop: 01/19/25 12:14 Dexamethasone 6 mg/ Syringe 1.5 mls @ 1 mls/min IV DAILY MOLLY Stop: 12/23/24 09:02 Last Admin: 12/22/24 08:44 Dose: 1 mls/min Clindamycin Phosphate (Cleocin/D5w) 600 mg in 50 mls @ 100 mls/hr IV Q8H MOLLY Stop: 12/28/24 16:29 Last Infusion: 12/22/24 09:15 Dose: Infused Influenza Virus Vaccine Quadrival (Do Not Administer Flu Vaccine) 1 each N/A PRN PRN PRN Reason: Notification Stop: 01/19/25 12:14 Lorazepam (Lorazepam 0.5 Mg Tab) 0.5 mg PO Q8H PRN PRN Reason: Sedation/Anxiety Stop: 01/19/25 12:14 Lorazepam (Lorazepam 2 Mg/1 Ml Vial) 0.5 mg IV Q8H PRN PRN Reason: Sedation/Anxiety Stop: 01/19/25 12:14 Magnesium Hydroxide (Magnesium Hydroxide Susp 30 Ml Udc) 30 ml PO Q24H PRN PRN Reason: Constipation Stop: 01/19/25 12:14 Metoclopramide HCl (Metoclopramide Hcl Inj 5 Mg/Ml 2 Ml Vial) 10 mg IV Q6H PRN PRN Reason: Nausea &/or Vomiting Stop: 01/19/25 12:14 Naloxone HCl (Naloxone Hcl 0.4 Mg/1 Ml Vial/Carp) 0.1 mg IV Q5M PRN PRN Reason: Oversedation/Resp depression Stop: 01/19/25 12:14 Ondansetron HCl (Ondansetron Inj 2 Mg/Ml 2 Ml Vial) 4 mg IV Q6H PRN PRN Reason: Nausea &/or Vomiting Stop: 01/19/25 12:14 Ondansetron HCl (Ondansetron 4 Mg Od Tab) 4 mg PO Q6H PRN PRN Reason: Nausea Stop: 01/19/25 12:14 Oxycodone HCl (Oxycodone Hcl Ir 5 Mg Tab (Immediate Release)) 5 - 10 mg PO Q4H PRN PRN Reason: MOD/SEV Pain & Pre PT Stop: 01/03/25 12:14 Pantoprazole Sodium (Pantoprazole 40 Mg Tab) 40 mg PO DAILY MOLLY Stop: 01/20/25 08:59 Last Admin: 12/22/24 08:43 Dose: 40 mg Pneumococcal Polyvalent Vaccine (Do Not Administer Pneumococcal Vaccine) 1 each N/A PRN PRN PRN Reason: Notification Stop: 01/19/25 12:14 Polyethylene Glycol (Polyethylene (Miralax) 17 Gm Pack) 17 gm PO Q6 MOLLY Stop: 01/20/25 05:59 Last Admin: 12/22/24 12:06 Dose: 17 gm Senna/Docusate Sodium (Docusate Sodium/Senna 50/8.6mg Tab) 2 tab PO HS MOLLY Stop: 01/19/25 20:59 Last Admin: 12/21/24 21:27 Dose: 2 tab Sodium Biphosphate/Sodium Phosphate (Sod Phosphate/Sod Biphosphate Enema 132 Ml Btl) 132 ml GA ONE PRN PRN Reason: Constipation Stop: 01/19/25 12:14 Tramadol HCl (Tramadol Hcl 50 Mg Tablet) 50 - 100 mg PO Q4H PRN PRN Reason: MOD/SEV Pain & Pre PT Stop: 01/19/25 12:14 Vitamin D (Cholecalciferol 125 Mcg (5,000 Units) Tab) 125 mcg PO QAM MOLLY Stop: 01/20/25 08:59 Last Admin: 12/22/24 08:43 Dose: 125 mcg
[2024-12-23 07:59] VITALS: PULSE 66; RESP 16; TEMP 98.2; O2SAT 97
--- NOTE | 2024-12-23 13:20 | Hospitalist Progress Note ---
Date of Service December 23, 2024 Assessment & Plan (1) Cerebral aneurysm: (2) Atrial septal aneurysm: (3) History of MO (myocardial infarction): (4) Lumbosacral spondylosis with radiculopathy: Plan The patient is a 69-year-old female who is s/p lumbar decompression and fusion Lumbar radiculopathy: S/p lumbar decompression/fusion 12/20: PT/OT/pain control/DVT prophylaxis per primary team Denies any symptoms following the procedure except minimal pain at the lower back Her hemoglobin is 9.5 on 12/21/2024 which was 13.5 on 12/11/2024Will monitor Remains otherwise medically stable with normal renal function and electrolytes Remains medically stable without much pain at the back Her electrolytes are normal Pain is controlled and she has been ambulating well without difficulties Waiting to be discharged Acute blood loss anemia Complicated by fluid administration No obvious bleeding from GI tract Will monitor CBC-hemoglobin remains stable at 9.6 Remains asymptomatic Hx GERD: Continue pantoprazole Hx Vit D def: Continue vitamin D Full code DVT prophylaxis: Per primary team Admission and Anticipated Discharge Date Admission Date: December 20, 2024 Subjective 12/21/2024 The patient was seen and examined in medical floor She is a status post L5-S1 decompression, L3-S1 fusion and L3-L5 removal of hardware on 12/20/2024 She complains to a minimal pain at the lower back without any radiation Denies any other significant symptoms 12/22/2024 Patient was seen and examined in medical floor She has been much better denies any more symptoms of antibiotic Denies any significant symptoms 12/23/2024 Patient was seen and examined in medical floor She has been stable and almost ready to go Does not have any drainage from the back surgery and back pain is controlled Waiting to be discharged Review of Systems Review of Systems: All systems reviewed and are unremarkable except as noted below Physical Exam Physical Exam: Sitting on a chair without any acute distress Constitutional: well developed, well nourished, + ill appearing and average body habitus Eyes: PERRL, conjunctivae normal, anicteric sclerae ENMT: external ear and nose normal, oropharynx normal Neck: trachea midline, no thyromegaly Respiratory: no respiratory distress Auscultation: lungs clear to auscultation bilaterally Cardiovascular: Rate/Rhythm: regular rate and regular rhythm; not tachycardic Heart Sounds: normal S1 and normal S2; no murmur Extremities: no edema Gastrointestinal (Abdomen): Inspection/Auscultation: normal bowel sounds; abdomen not distended Percussion/Palpation: abdomen soft; abdomen nontender Neurologic: normal touch/pain/proprioception and moves all extremities; no focal motor deficits Lymphatic: no cervical or axillary lymphadenopathy Results & Data Results & Data Vital Signs (Past 12 Hours) Vital Signs Temp Pulse Resp BP Pulse Ox O2 Del Method 12/23/24 07:15 36.8 C 66 16 127/78 97 Room Air 12/23/24 07:00 Room Air Medications Administered Current Inpatient Medications Acetaminophen (Acetaminophen 500 Mg Tab) 1,000 mg PO Q8H PRN PRN Reason: MILD Pain (1,2,3) & Pre PT Stop: 01/19/25 12:14 Last Admin: 12/23/24 07:30 Dose: 1,000 mg Al Hydrox/Mg Hydrox/Simethicone (Aluminum/Magnesium Susp 30 Ml Udc) 30 ml PO Q6H PRN PRN Reason: Dyspepsia Stop: 01/19/25 12:14 Bisacodyl (Bisacodyl 10 Mg Supp) 10 mg NJ DAILY PRN PRN Reason: Constipation Stop: 01/19/25 12:14 Diphenhydramine HCl (Diphenhydramine Capsule 25 Mg Cap) 25 mg PO Q6H PRN PRN Reason: Allergic Rhinitis/Insomnia Stop: 01/19/25 12:14 Last Admin: 12/23/24 07:30 Dose: 25 mg Famotidine (Famotidine 20 Mg Tab) 20 mg PO Q12H PRN PRN Reason: Dyspepsia Stop: 01/19/25 12:14 Hydromorphone HCl (Hydromorphone Inj 0.5 Mg/0.5 Ml Syr) 0.5 mg IV Q3H PRN PRN Reason: MODERATE Pain(4,5,6)/Pre PT Stop: 01/03/25 12:14 Hydromorphone HCl (Hydromorphone Inj 1 Mg/Ml Syringe) 1 mg IV Q3H PRN PRN Reason: SEVERE Pain (7,8,9,10) Stop: 01/03/25 12:14 Hydroxyzine HCl (Hydroxyzine Hcl 25 Mg Tab) 25 mg PO Q8H PRN PRN Reason: Anxiety Stop: 01/19/25 12:14 Promethazine HCl (Phenergan) 12.5 mg in 50.5 mls @ 202 mls/hr IV Q6H PRN PRN Reason: Nausea And Vomiting Stop: 01/19/25 12:14 Clindamycin Phosphate (Cleocin/D5w) 600 mg in 50 mls @ 100 mls/hr IV Q8H MOLLY Stop: 12/28/24 16:29 Last Infusion: 12/23/24 08:05 Dose: Infused Influenza Virus Vaccine Quadrival (Do Not Administer Flu Vaccine) 1 each N/A PRN PRN PRN Reason: Notification Stop: 01/19/25 12:14 Lorazepam (Lorazepam 0.5 Mg Tab) 0.5 mg PO Q8H PRN PRN Reason: Sedation/Anxiety Stop: 01/19/25 12:14 Lorazepam (Lorazepam 2 Mg/1 Ml Vial) 0.5 mg IV Q8H PRN PRN Reason: Sedation/Anxiety Stop: 01/19/25 12:14 Magnesium Hydroxide (Magnesium Hydroxide Susp 30 Ml Udc) 30 ml PO Q24H PRN PRN Reason: Constipation Stop: 01/19/25 12:14 Metoclopramide HCl (Metoclopramide Hcl Inj 5 Mg/Ml 2 Ml Vial) 10 mg IV Q6H PRN PRN Reason: Nausea &/or Vomiting Stop: 01/19/25 12:14 Naloxone HCl (Naloxone Hcl 0.4 Mg/1 Ml Vial/Carp) 0.1 mg IV Q5M PRN PRN Reason: Oversedation/Resp depression Stop: 01/19/25 12:14 Ondansetron HCl (Ondansetron Inj 2 Mg/Ml 2 Ml Vial) 4 mg IV Q6H PRN PRN Reason: Nausea &/or Vomiting Stop: 01/19/25 12:14 Ondansetron HCl (Ondansetron 4 Mg Od Tab) 4 mg PO Q6H PRN PRN Reason: Nausea Stop: 01/19/25 12:14 Oxycodone HCl (Oxycodone Hcl Ir 5 Mg Tab (Immediate Release)) 5 - 10 mg PO Q4H PRN PRN Reason: MOD/SEV Pain & Pre PT Stop: 01/03/25 12:14 Pantoprazole Sodium (Pantoprazole 40 Mg Tab) 40 mg PO DAILY MOLLY Stop: 01/20/25 08:59 Last Admin: 12/23/24 08:07 Dose: 40 mg Pneumococcal Polyvalent Vaccine (Do Not Administer Pneumococcal Vaccine) 1 each N/A PRN PRN PRN Reason: Notification Stop: 01/19/25 12:14 Senna/Docusate Sodium (Docusate Sodium/Senna 50/8.6mg Tab) 2 tab PO HS MOLLY Stop: 01/19/25 20:59 Last Admin: 12/22/24 19:40 Dose: Not Given Sodium Biphosphate/Sodium Phosphate (Sod Phosphate/Sod Biphosphate Enema 132 Ml Btl) 132 ml NJ ONE PRN PRN Reason: Constipation Stop: 01/19/25 12:14 Tramadol HCl (Tramadol Hcl 50 Mg Tablet) 50 - 100 mg PO Q4H PRN PRN Reason: MOD/SEV Pain & Pre PT Stop: 01/19/25 12:14 Vitamin D (Cholecalciferol 125 Mcg (5,000 Units) Tab) 125 mcg PO QAM MOLLY Stop: 01/20/25 08:59 Last Admin: 12/23/24 08:07 Dose: 125 mcg
--- NOTE | 2024-12-23 14:26 | Discharge Summary ---
Date of Service December 23, 2024 Admission HPI Per Admitting Provider This is a 69-year-old female presents chronic persistent back and leg pain after an extensive course of nonoperative care is here for surgical intervention. Discharge Data Consultations 12/20/24 12:15 Consult Hospitalist Routine Procedures Performed Operation Date: 12/20/24 07:45 Actual Procedures p L5-S1 Decompression, L3-S1 Fusion(Not Applicable) - Murali Vaughn DO s L3-L5 Removal Hardware,(Not Applicable) - Murali Vaughn DO Hospital Course (1) Lumbosacral spondylosis with radiculopathy: Patient is a pleasant 69-year-old female history physical examination radiog raphic images consist of the above-mentioned diagnosis. This reason she was brought to the operating room undergone a removal of hardware from L3-L5 lumbar decompression at L5-S1 and fusion from L3-S1. She left the operating room with DIDI drain Arellano in place and is transferred to PACU in stable condition. She is then transferred to the orthopedic floor. She was placed on GI DVT prophylaxis. She was seen by physical therapy postoperatively #1. On postop day 3 she is met discharge criteria and safe for home discharge. Her discharge instructions were to change her dressing once daily until there is no drainage. Once there is no drainage she may shower. She should not drive for 2 weeks until she sees us in the office. She should minimize bending lifting and twisting. She is to call the office to be seen sooner if developed any increased pain, drainage from the incision, fevers or chills.
[2024-12-23 14:41] VITALS: BP 101/55
== END 2024-12-23 15:30 | disposition home or self-care (01) | DRG 402 ==
LOC: ASU 05:39 → 3W 10:05